=== PATIENT | female | born 1995 | race Caucasian/White ===

== ENCOUNTER 2020-04-27 12:45 | Emergency (ER) | payer OTHER, BC ==
[~2020-04-27] VITALS: Ht 147.3 cm; Wt 79.5 kg
[2020-04-27 12:57] VITALS: BP 97/65
[2020-04-27] MEDS ORDERED: BUSPIRONE5 MG PO (13:02)
[2020-04-27] MEDS ORDERED: AUGMENTIN 875-1 EAC1 PO (13:03)
[2020-04-27] MEDS ORDERED: WELLBUTRIN 75MG75 MG PO (13:03)
[2020-04-27] MEDS ORDERED: ABILIFY2 MG PO (13:03)
== END 2020-04-27 13:43 | disposition home or self-care (01) ==
LOC: ED 12:45
DX: S61.451A Open bite of right hand, initial encounter (principal); Z79.2 Long term (current) use of antibiotics; W54.0XXA Bitten by dog, initial encounter; Y99.0 Civilian activity done for income or pay
CPT/HCPCS: 90715